=== PATIENT | female | born 1960 | race Caucasian/White ===

== ENCOUNTER 2019-06-13 13:21 | Day surgery (SDC) | payer OTHER ==
[~2019-06-13] VITALS: Ht 154.9 cm; Wt 47.0 kg
[~2019-06-13 13:21] MED LIST: EPHEDRINE 50 MG/ML, 1ML ONE; FENTANYL PF 100 MCG/2ML ONE; MIDAZOLAM 1 MG/ML, 2ML ONE
[2019-06-13] MEDS ORDERED: LACTATED RINGERS 1,000 ML IV SCH (13:45)
[2019-06-13] MEDS ORDERED: BUPIVACAINE/PF 0.25% ONE (13:46)
[2019-06-13] MEDS ORDERED: EPINEPHRINE 1 MG/ML, 1ML ONE (13:46)
[2019-06-13 13:50] VITALS: BP 144/87
[2019-06-13] MEDS ORDERED: SCOPOLAMINE 1MG PATCH TD SCH (14:00)
[2019-06-13] MEDS ORDERED: ACETAMINOPHEN 500 MG TABLET PO ONE (14:00)
[2019-06-13] MEDS ORDERED: none per pt (14:15)
[2019-06-13] MEDS ORDERED: DIAZEPAM 5 MG TABLET PO ONE (14:30)
[2019-06-13] MEDS ORDERED: CLINDAMYCIN 150 MG/ML, 6ML ONE (15:42)
[2019-06-13] MEDS ORDERED: PROPOFOL 100 ML ONE (15:54)
[2019-06-13] MEDS ORDERED: DEXAMETHASONE 4 MG/ML, 1ML ONE (16:33)
[2019-06-13] MEDS ORDERED: PROPOFOL 10 MG/ML, 20ML ONE (16:33)
[2019-06-13] MEDS ORDERED: NEOSTIGMINE 1 MG/ML, 10ML ONE (16:33)
[2019-06-13] MEDS ORDERED: ONDANSETRON 2MG/ML, 2ML ONE (16:33)
[2019-06-13] MEDS ORDERED: ROCURONIUM 10MG/ML,5ML ONE (16:33)
[2019-06-13] MEDS ORDERED: SUCCINYLCHOLINE 20 MG/ML, 10ML ONE (16:33)
[2019-06-13] MEDS ORDERED: GLYCOPYRROLATE 0.2MG/1ML, 5ML ONE (16:33)
[2019-06-13] MEDS ORDERED: CEFAZOLIN 1,000 MG ONE (16:33)
[2019-06-13] MEDS ORDERED: SUGAMMADEX 200 MG/2 ML IVPush ONE (16:43)
== END 2019-06-13 18:57 | disposition home or self-care (01) ==
LOC: OUT 13:21
PROVIDERS: ATTEND Orthopaedic Surgery
DX: M75.111 Incomplete rotator cuff tear or rupture of right shoulder, not specified as traumatic (principal); S43.431A Superior glenoid labrum lesion of right shoulder, initial encounter; M75.21 Bicipital tendinitis, right shoulder; M75.41 Impingement syndrome of right shoulder; X58.XXXA Exposure to other specified factors, initial encounter; Y93.89 Activity, other specified; Y92.89 Other specified places as the place of occurrence of the external cause; Y99.8 Other external cause status
CPT/HCPCS: 23430; 29822; 29826; 29827; 64415; 93005; J0171; J0690; J1100; J2250; J2405; J2704; J3010; J3490; J7120; J2710; C1713; J0330

== ENCOUNTER 2020-09-06 13:22 | Emergency (ER) | payer OTHER ==
[~2020-09-06] VITALS: Ht 157.5 cm; Wt 47.5 kg
[~2020-09-06 13:22] MED LIST changes: -EPHEDRINE 50 MG/ML, 1ML ONE; -FENTANYL PF 100 MCG/2ML ONE; -MIDAZOLAM 1 MG/ML, 2ML ONE; +none per pt
[2020-09-06] MEDS ORDERED: HYDROcodone/APAP 5/325 TABLET PO STA ×2 (13:46→17:15)
[2020-09-06] MEDS ORDERED: KETOROLAC 30 MG/1 ML IM ONE (14:00)
[2020-09-06] MEDS ORDERED: KETOROLAC 30 MG/1 ML ONE (14:14)
[2020-09-06] MEDS ORDERED: HYDROcodone/APAP 5/325 TABLET ONE ×2 (14:14→17:32)
--- NOTE | 2020-09-06 14:23 | NUR ---
FELL IN BATHROOM LAST NIGHT. LOW BACK PAIN. PT STATES IT TOOK HER AN HOUR TO GET OUT OF BED. PT SITTING IN WHEELCHAIR IN POSITION OF COMFORT. MEDICATED NOTED ON MAR FOR PAIN
--- NOTE | 2020-09-06 14:25 | NUR ---
BREAK RN NOTE: PT TO RADIOLOGY
--- NOTE | 2020-09-06 15:27 | NUR ---
UP OUT OF WHEELCHAIR WITH ASSISTANCE AND ABLE TO AMBULATE A SHORT DISTANCE WITHOUT ASSISTANCE. PAIN IMPROVED SINCE MEDICATED FOR SAME. AWAITING RE-EVAL
--- NOTE | 2020-09-06 16:10 | NUR ---
TO CT VIA W/C
--- NOTE | 2020-09-06 17:40 | NUR ---
PT MEDICATED FOR 6/10 BACK PAIN. PT AWAITING TLSO. REMAINS SITTING IN W/C
--- NOTE | 2020-09-06 17:42 | NUR ---
[facility] paged and order faxed per request.
--- NOTE | 2020-09-06 19:02 | NUR ---
REPORT RECIEVED FROM ANA CRABT[facility]. VENDOR AT BEDSIDE PLACING TLSO
[2020-09-06 19:10] VITALS: BP 116/69
== END 2020-09-06 19:38 | disposition home or self-care (01) ==
LOC: ED 14:12
DX: S22.080A Wedge compression fracture of T11-T12 vertebra, initial encounter for closed fracture (principal); W22.8XXA Striking against or struck by other objects, initial encounter; Y93.89 Activity, other specified; Y92.009 Unspecified place in unspecified non-institutional (private) residence as the place of occurrence of the external cause; Y99.8 Other external cause status
CPT/HCPCS: 72110; 72128; 72131; 96372; 99285; J1885